=== PATIENT | male | born 1980 | race Caucasian/White ===

== ENCOUNTER 2022-05-24 19:56 | Emergency (ER) | payer OTHER, SELFPAY ==
[2022-05-24] VITALS (14 sets, daily range): BP systolic 106–151; BP diastolic 68–99; PULSE 89–115; RESP 18–22; TEMP 36.4; O2SAT 91–100; BMI 27.2
--- NOTE | 2022-05-24 20:09 | ED.ALLEREA ---
HPI - Allergic Reaction General Time Seen by Provider: 20:10 Date Seen: 05/24/22 Chief complaint: Allergic Reaction Stated complaint: Stung in Eyelid Time Seen by Provider: 05/24/22 19:57 Source: patient Mode of arrival: ambulatory Limitations: no limitations History of Present Illness HPI narrative: This 42-year-old gentleman who speaks fluent Czech and tingly she presents here after bee sting to his eyelid, this occurred approximately 30 minutes ago, he has a full body rash, and feels that he might have a little bit more shortness of breath with this too. He is speaking to me in full sentences, does not report any previous problems with bees, or hornets or any other stinging animals. Denies any nausea vomiting feeling lightheaded, denies any throat closing, or inability to speak. He is on no chronic medications, only allergy is to Celexa which caused him to have a headache and nausea which is more of an adverse type reaction. Denies any cardiac or pulmonary problems, is not taking any herbal medications. Presents here with this family. They have brought the insect along, and it is hornet. complaint: allergic reaction and hives Onset (ago): minute(s) (30) Exposure: insect bite Symptoms: rash and difficulty breathing Severity: moderate Treatment prior to arrival: none Previous Allergic Reaction History: none Related Data Previous Rx's Medication Instructions Recorded epinephrine 0.3 mg/0.3 mL 0.3 mg (0.3 mL) IM Q5-15M PRN 05/24/22 injection, auto-injector (EpiPen) anaphylaxis #2 ea Allergies Allergy/AdvReac Type Severity Reaction Status Date / Time bee venom protein (honey bee) Allergy Severe Hives Verified 05/24/22 21:36 citalopram Allergy Headache, Verified 05/24/22 20:28 Nausea Review of Systems Status of ROS Reports: 10 or more systems reviewed and unremarkable except as noted in History and below PFSH PFS Medical History No significant past medical history Surgical History No significant past surgical history Social History Smoking Status: Former smoker How often do you have a drink containing alcohol: never How often do you have six or more drinks on one occasion: Never AUDIT-C Alcohol total score: 0 Non-prescribed substance use: denies use Exam Narrative: Exam Narrative: Patient is seen and assessed he is speaking to me in full sentences but indeed does have a red macular rash, that is blanching over his pretty well is entire extremities, consistent with urticaria. also little bit on his face, there is no lip swelling, his speech is normal. His neck is supple, oropharynx is normal. Cranial nerves 3-12 are normal, JVP is flat, chest is good air entry bilaterally with no wheezing crackles noted, heart sounds no clicks murmurs or gallops, abdomen is soft, scaphoid, no tenderness to palpation no organomegaly, bowel sounds are normal, extremities are all normal, moves both proximal distal extremities normal, no neurologic findings, GCS is 15/15 Const: Vital Signs, click to edit/add: Vital Signs - 24 hr 05/24/22 20:04 05/24/22 20:10 05/24/22 20:23 Temperature 97.6 F Pulse Rate 97 Pulse Rate [Right Pulse Oximeter] 115 H 108 H Respiratory Rate 22 Blood Pressure 121/85 Blood Pressure [Ri ght Upper Arm] 106/68 124/73 Pulse Oximetry 94 91 95 Oxygen Delivery Me thod Room Air Room Air 05/24/22 20:24 05/24/22 20:31 05/24/22 20:10 Temperature 97.6 F Pulse Rate 93 98 Pulse Rate [Right Pulse Oximeter] 108 H Respiratory Rate 22 Blood Pressure 128/97 H Blood Pressure [Ri ght Upper Arm] 124/73 Pulse Oximetry 95 96 96 Oxygen Delivery Me thod Room Air 05/24/22 20:41 05/24/22 20:51 05/24/22 21:05 Temperature Pulse Rate 92 90 93 Pulse Rate [Right Pulse Oximeter] Respiratory Rate Blood Pressure 145/99 H 139/92 H Blood Pressure [Ri ght Upper Arm] Pulse Oximetry 100 98 97 Oxygen Delivery Me thod 05/24/22 21:11 05/24/22 21:22 05/24/22 21:31 Temperature Pulse Rate 95 94 98 Pulse Rate [Right Pulse Oximeter] Respiratory Rate Blood Pressure 138/86 138/83 133/92 H Blood Pressure [Ri ght Upper Arm] Pulse Oximetry 97 96 97 Oxygen Delivery Nc thod Documenting provider has reviewed patient's vital signs: yes Course Reevaluation(s) Reevaluation #1: Patient is re-evaluated he is sleeping comfortably, his edema over his eyelids is improved, and his rash is improving also. Explained to both him and his , that he will be watch for the next 3 hours or so, to ensure that he has no relapse, Time: 21:50 Time: 23:43 Reevaluation #3: Patient's rash totally gone away, he speaking to me with no problem at all, recheck shows good air entry bilaterally absence of any extra sounds such as wheezing. ,, edema of his eyes is much improved, there is no edema of his oropharynx. Vital Signs Vital signs: Initial Vital Signs Temperature 97.6 F 05/24/22 20:04 Temperature Source Temporal Artery Scan 05/24/22 20:04 Pulse Rate 115 H 05/24/22 20:04 Respiratory Rate 22 05/24/22 20:04 Blood Pressure 106/68 05/24/22 20:04 Blood Pressure Mean 80 05/24/22 20:04 Blood Pressure Position Sitting 05/24/22 20:04 Pulse Oximetry 94 05/24/22 20:04 Oxygen Delivery Method 05/24/22 20:04 Vital Signs Temperature 97.6 F 05/24/22 20:04 Pulse Rate 115 H 05/24/22 20:04 Respiratory Rate 22 05/24/22 20:04 Blood Pressure 106/68 05/24/22 20:04 Pulse Oximetry 94 05/24/22 20:04 Oxygen Delivery Method 05/24/22 20:04 Temperature 97.6 F 05/24/22 20:10 Pulse Rate 98 05/24/22 21:31 Respiratory Rate 22 05/24/22 20:10 Blood Pressure 133/92 H 05/24/22 21:31 Pulse Oximetry 97 05/24/22 21:31 Oxygen Delivery Method 05/24/22 20:10 MDM - Allergic Reaction MDM Narrative Medical decision making narrative: Differential diagnosis include but are not limited to contact dermatitis, allergic reaction, shingles, impetigo, seborrheic dermatitis, Pablo Adrian syndrome, ITP, meningococcus, HSP Life-threatening differential diagnosis includes occluded COPD exacerbation, pulmonary edema, acute coronary syndromes, pulmonary embolism, pneumonia, and pneumothorax. Other differential diagnosis considerations include asthma, bronchitis as well as other etiologies I think that this is likely allergic reaction, we will give him some epinephrine, Solu-Medrol, Benadryl, Pepcid, give him fluids, do an EKG, basic labs, and see how he does. He will need to be watch for a few hours, given the allergic reaction. Differential Diagnosis Differential diagnosis: Likely anaphylaxis, allergic reaction, angioedema, adverse reaction to drug, viral enanthem and urticaria Lab Data Labs: Lab Results 05/24/22 05/24/22 Range/Units 20:10 20:10 WBC 7.38 (4.50-11.00) K/uL RBC 5.36 (4.30-5.90) m/uL Hgb 17.1 (13.5-17.5) gm/dL Hct 47.6 (37.0-53.0) % MCV 89 (80-100) fL MCH 32 (26-34) pg MCHC 36 (32-36) gm/dL RDW Coeff of Monik 12.3 (11.5-15.5) % Plt Count 343 (140-440) K/uL Neut % (Auto) 54.1 (42.0-72.0) % Lymph % (Auto) 38.2 (20-44) % Throckmorton % (Auto) 6.0 (0.0-11.0) % Eos % (Auto) 1.4 (0.0-7.0) % Baso % (Auto) 0.0 (0.0-3.0) % Neut # (Auto) 4.00 (1.7-7.0) K/uL Lymph # (Auto) 2.82 (0.90-2.90) K/uL Throckmorton # (Auto) 0.40 (0.00-0.90) K/UL Eos # (Auto) 0.10 (0.00-0.50) K/uL Baso # (Auto) 0.00 (0.00-0.30) K/uL Abs Immat Gran (auto) 0.02 (0.00-0.30) K/uL Sodium 141 (135-149) mmol/L Potassium 4.0 (3.6-5.1) mmol/L Chloride 104 (96-114) mmol/L Carbon Dioxide 25 (20-32) mmol/L BUN 18 (5-24) mg/dL Creatinine 1.3 (0.5-1.5) mg/dL Estimated Creat Clear 79.64 Estimated GFR 71 ml/min Glucose 122 H (60-115) mg/dL Calcium 9.4 (8.4-10.6) mg/dL ECG Data Attestation: I personally reviewed and interpreted this ECG as follows: ECG interpretation date: 05/24/22 Prior ECG tracings: not available for review Interpretation: Normal sinus rhythm normal EKG with a ventricular rate of 95, there is no acute ST wave changes, normal QRS QT and IL interval Assessment: Normal EKG Discharge Plan Discharge Clinical Impression: Urticaria, Allergic reaction Patient Disposition: Home w/ Parent or Adult Condition: Improved Instructions: Urticaria (ED), General Allergic Reaction (ED) Additional Instructions: Home rest start medications in the morning. He may use Benadryl 50 mg every 6 hours this is OTC, along with the prednisone as directed out of Inst[facility] , I would also recommend filling the prescription for the EpiPen, as this reaction likely will only get worse the future if he gets done again. Return here if increasing shortness of breath, swelling around the oropharynx, wheezing, or any other issues. Activity Level: Light activity Prescriptions: New epinephrine [EpiPen] 0.3 mg/0.3 mL auto-injector 0.3 mg IM Q5-15M PRN (Reason: anaphylaxis) Qty: 2 0RF Rx Instructions: do not exceed 3 doses per episode Follow Up/Referrals: Brendan Sanderson MD [Primary Care Provider] - Stand Alone Forms: [employer] Info Instructions
[2022-05-24] MEDS: EPINEPHrine 0.3 MG PEN IM (20:14)
[2022-05-24] MEDS: 0.9 % SODIUM CHLORIDE 1000 ml 1,000 ML IV (20:14)
[2022-05-24] MEDS: diphenhydrAMINE 50 MG/ML inj IVP (20:16)
[2022-05-24] MEDS: METHYLPREDNISOLONE SOD SUCC 62.5 MG/ML (125) 125 MG IVP (20:16)
[2022-05-24] MEDS: FAMOTIDINE 20 MG TABLET PO (20:17)
[2022-05-24 20:26] LABS: Eosinophils Percent Auto 1.4 % (0.0-7.0); Hematocrit 47.6 % (37.0-53.0); Hemoglobin* 17.1 gm/dL (13.5-17.5); Immature Granulocytes Abs Auto 0.02 K/uL (0.00-0.30); Lymphocytes Absolute Auto 2.82 K/uL (0.90-2.90); Lymphocytes Percent Auto 38.2 % (20-44); Mean Corpuscular HGB Conc 36 gm/dL (32-36); Mean Corpuscular Hemoglobin 32 pg (26-34); Mean Corpuscular Volume 89 fL (80-100); Neutrophils Percent Auto 54.1 % (42.0-72.0); Platelet Count* 343 K/uL (140-440); RDW Coefficient of Variation % 12.3 % (11.5-15.5); Red Blood Count 5.36 m/uL (4.30-5.90); White Blood Count* 7.38 K/uL (4.50-11.00)
[2022-05-24 20:27] LABS: Slide Review Reflex No
[2022-05-24 20:39] LABS: Chloride* 104 mmol/L (96-114); Sodium* 141 mmol/L (135-149)
[2022-05-24 20:42] LABS: Carbon Dioxide* 25 mmol/L (20-32); Creatinine* 1.3 mg/dL (0.5-1.5); Est. Creatinine Clearance* 79.64; Estimated Glomerular Filt Rate 71 ml/min
[2022-05-24 20:43] LABS: Blood Urea Nitrogen* 18 mg/dL (5-24); Calcium* 9.4 mg/dL (8.4-10.6); Glucose* 122 mg/dL (60-115)
[2022-05-25 00:18] VITALS: BP 124/77; PULSE 89; RESP 18; TEMP 36.4
== END 2022-05-24 23:50 | disposition home or self-care (01) ==
PROVIDERS: Emergency Provider Family Medicine; PCP Family Medicine
DX: T63.441A Toxic effect of venom of bees, accidental (unintentional), initial encounter (principal); L50.9 Urticaria, unspecified
CPT/HCPCS: 36415; 80048; 85025; 93005; 96372; 96374; 96375; 99284; A9270; J0171; J1200; J2930; J7030

== ENCOUNTER 2023-05-30 09:27 | Emergency (ER) | payer OTHER, SELFPAY ==
[2023-05-30 09:31] VITALS: BP 128/78; PULSE 84; RESP 16; TEMP 36; O2SAT 98; BMI 25.8
--- NOTE | 2023-05-30 10:25 | ED_ITS ---
HPI - General Adult General Date Seen: 05/30/23 Chief complaint: Skin/Abscess/Foreign Body Stated complaint: Wasp sting L hand yesterday, swelling Time Seen by Provider: 05/30/23 09:32 Source: patient Mode of arrival: ambulatory Limitations: no limitations History of Present Illness HPI narrative: Patient is a 43-year-old male presenting to emergency department for a insect bite to his left hand. He states he believes it was a wasp. In the past he states he had anaphylactic reaction to hornet. Now is having swelling noted to his left hand and left forearm. Has some mild pain but has full range of motion. Denies numbness or weakness. Denies fevers, chills, chest pain, shortness of breath, abdominal pain, nausea vomiting, diarrhea, constipation, weakness, lightheadedness, dizziness. States that the taking Benadryl home without improvement in the swelling. States he has not used an EpiPen. Related Data Previous Rx's Medication Instructions Recorded epinephrine 0.3 mg/0.3 mL 0.3 mg (0.3 mL) IM Q5-15M PRN 05/24/22 injection, auto-injector (EpiPen) anaphylaxis #2 ea cephalexin 500 mg capsule 500 mg PO QID #20 caps 05/30/23 epinephrine 0.3 mg/0.3 mL 0.3 mg (0.3 mL) IM Q5-15M PRN #2 ea 05/30/23 injection, auto-injector (EpiPen 2-Gerardo) prednisone 20 mg tablet 40 mg (2 x 20 mg) PO DAILY #10 tabs 05/30/23 Allergies Allergy/AdvReac Type Severity Reaction Status Date / Time bee venom protein (honey bee) Allergy Severe Hives Verified 05/30/23 09:36 citalopram Allergy Headache, Verified 05/30/23 09:36 Nausea Review of Systems Status of ROS: Reports: 10 or more systems reviewed and unremarkable except as noted in History and below [facility] Medical History No significant past medical history Surgical History No significant past surgical history Social History Smoking Status: Former smoker How often do you have a drink containing alcohol: never How often do you have six or more drinks on one occasion: Never AUDIT-C Alcohol total score: 0 Non-prescribed substance use: denies use Exam Narrative: Exam Narrative: Const: Well-nourished, Well-developed, in mild distress Eyes: PERRL, no conjunctival injection, and symmetrical lids ENMT: Atraumatic external nose and ears. Moist mucous membranes. Neck: Symmetric, trachea midline, No thyromegaly. CVS: RRR, No murmurs or gallops. Peripheral pulses 2+ and equal in all extremities RESP: Unlabored respiratory effort. Clear to auscultation bilaterally. GI: Nontender/Nondistended, No rebound or guarding. MSK:Extremities w/o deformity, Normal Active ROM. Swelling noted to left hand. Skin: Warm, Dry. Erythematous left hand with some swelling and erythema noted to the left forearm Neuro: Normal Muscle tone, No focal neurological deficits. Normal sensation bilateral upper extremities with muscle strength 5/5 bilateral upper extremities. Psych: Awake, Alert, & Oriented x3. Appropriate mood and affect. Const: Vital Signs, click to edit/add: Vital Signs - 24 hr 05/30/23 09:31 Temperature 96.8 F L Pulse Rate [Right Pulse Oximeter] 84 Respiratory Rate 16 Blood Pressure [Ri ght Upper Arm] 128/78 Pulse Oximetry 98 Oxygen Delivery Me thod Room Air Course Vital Signs Vital signs: Initial Vital Signs Temperature 96.8 F L 05/30/23 09:31 Temperature Source Temporal Artery Scan 05/30/23 09:31 Pulse Rate 84 05/30/23 09:31 Respiratory Rate 16 05/30/23 09:31 Blood Pressure 128/78 05/30/23 09:31 Blood Pressure Mean 94 05/30/23 09:31 Blood Pressure Position Sitting 05/30/23 09:31 Pulse Oximetry 98 05/30/23 09:31 Oxygen Delivery Method Room Air 05/30/23 09:31 Vital Signs Temperature 96.8 F L 05/30/23 09:31 Pulse Rate 84 05/30/23 09:31 Respiratory Rate 16 05/30/23 09:31 Blood Pressure 128/78 05/30/23 09:31 Pulse Oximetry 98 05/30/23 09:31 Oxygen Delivery Method Room Air 05/30/23 09:31 Temperature 96.8 F L 05/30/23 09:31 Pulse Rate 84 05/30/23 09:31 Respiratory Rate 16 05/30/23 09:31 Blood Pressure 128/78 05/30/23 09:31 Pulse Oximetry 98 05/30/23 09:31 Oxygen Delivery Method Room Air 05/30/23 09:31 Medical Decision Making MDM Narrative Medical decision making narrative: Patient is a 41-year-old male presents emergency department for swelling to his left hand and forearm. States started yesterday after he was stung by a wasp. States he had anaphylaxis to hornets today. At this time is not showing no anaphylactic symptoms he states he was not having any symptoms other than the swelling. There is some mild pain. While it does look like it is mostly allergic reaction in nature due to the uniform swelling I cannot definitively rule out an infection. The swelling does go down the left arm in color his most to the underside of the forearm but is not have any streaking of hearing aids in appears more generalized edema rather than H2 infection. With this though I will start him on antibiotics precautionary along with prednisone and will give him an EpiPen. I informed him to continue take the medications as directed. Patient is given strict return precautions to return emergency department for any worsening symptoms for re-evaluation. At this time I do not believe he needs to see a hand specialist but this can potentially change if things worsen especially if he returns with worsening symptoms. Patient states he is agreeable to this plan and understands the importance of this strict return prec autions. Discharge Plan Discharge Clinical Impression: Allergic reaction Qualifiers: Encounter type: initial encounter Qualified Code(s): T78.40XA - Allergy, unspecified, initial encounter Patient Disposition: Home, Self-Care Condition: Stable Instructions: General Allergic Reaction (ED) Additional Instructions: Take the Benadryl 25-50 mg every 6-8 hours. Uses steroids daily for the next 4 days starting 05/31/2023. Take the Keflex as directed. Please return to the emergency department immediately if he notes any worsening or concerning symptoms. Have a low threshold to return for revaluation. While I believe this is most likely an allergic reaction if there is underlying infection that is getting worse it can worsen quickly and may need immediate attention. Prescriptions: New prednisone 20 mg tablet 40 mg PO DAILY Qty: 10 0RF epinephrine [EpiPen 2-Gerardo] 0.3 mg/0.3 mL auto-injector 0.3 mg IM Q5-15M PRNQty: 2 0RF Rx Instructions: do not exceed 3 doses per episode cephalexin 500 mg capsule 500 mg PO QID Qty: 20 0RF No Action epinephrine [EpiPen] 0.3 mg/0.3 mL auto-injector 0.3 mg IM Q5-15M PRN (Reason: anaphylaxis) Qty: 2 0RF Rx Instructions: do not exceed 3 doses per episode Follow Up/Referrals: Brendan Sanderson MD [Primary Care Provider] - Stand Alone Forms: [employer] Info Instructions
== END 2023-05-30 10:36 | disposition home or self-care (01) ==
PROVIDERS: Emergency Provider Student in an Organized Health Care Education/Training Program; PCP Family Medicine
DX: T63.461A Toxic effect of venom of wasps, accidental (unintentional), initial encounter (principal)
CPT/HCPCS: 99283

== ENCOUNTER 2023-11-20 07:53 | Emergency (ER) | payer BC, SELFPAY ==
[2023-11-20 07:56] VITALS: BP 138/84; PULSE 103; RESP 18; TEMP 36.1; O2SAT 97; BMI 26.1
--- NOTE | 2023-11-20 08:28 | ED.GENADULT ---
HPI - General Adult General Date Seen: 11/20/23 Chief complaint: Extremity Pain/Injury, Lower Stated complaint: Foot possible spider bite Time Seen by Provider: 11/20/23 08:03 Source: patient Mode of arrival: ambulatory Limitations: no limitations History of Present Illness HPI narrative: Is a 43-year-old male with left foot pain. He states the pain started about 2 days ago on top of his foot that has moved to the lateral aspect of the foot. He is concerned might feel a spider bite. He states he has had symptoms exactly like this before and at that time was told it was an allergic reaction to insect bites. He states both times he was given steroid and his symptoms quickly improved. He did use his EpiPen earlier today to see if it would help. Denies chest pain, shortness of breath, abdominal pain, diarrhea, constipation, weakness, fevers, chills. He states it is painful to walk on the foot great now. But the pain is all localized to the foot and denies any ankle pain. Has been taking Benadryl and Advil with minimal improvement in his symptoms Related Data Previous Rx's Medication Instructions Recorded epinephrine 0.3 mg/0.3 mL 0.3 mg (0.3 mL) IM Q5-15M PRN 05/24/22 injection, auto-injector (EpiPen) anaphylaxis #2 ea epinephrine 0.3 mg/0.3 mL 0.3 mg (0.3 mL) IM Q5-15M PRN #2 ea 05/30/23 injection, auto-injector (EpiPen 2-Gerardo) cephalexin 500 mg capsule 500 mg PO QID #20 caps 11/20/23 Allergies Allergy/AdvReac Type Severity Reaction Status Date / Time bee venom protein (honey bee) Allergy Severe Hives Verified 05/30/23 09:36 citalopram Allergy Headache, Verified 05/30/23 09:36 Nausea Review of Systems Status of ROS: Reports: 10 or more systems reviewed and unremarkable except as noted in History and below [facility] Medical History No significant past medical history Surgical History No significant past surgical history Social History Smoking Status: Former smoker How often do you have a drink containing alcohol: never How often do you have six or more drinks on one occasion: Never AUDIT-C Alcohol total score: 0 Non-prescribed substance use: denies use Exam Narrative: Exam Narrative: Const: Well-nourished, Well-developed, in mild distress Eyes: PERRL, no conjunctival injection, and symmetrical lids HENT: Atraumatic external nose and ears. Moist mucous membranes. Neck: Symmetric, trachea midline, No thyromegaly. CVS: RRR, No murmurs or gallops. Peripheral pulses 2+ and equal in all extremities RESP: Unlabored respiratory effort. Clear to auscultation bilaterally. GI: Nontender/Nondistended, No rebound or guarding. MSK:Extremities w/o deformity, Normal Active ROM, tenderness to palpation lateral foot. No tenderness to palpation noted to medial aspect of foot or ankle Skin: Warm, Dry. Her erythema to left foot on the lateral aspect Neuro: Normal Muscle tone, No focal neurological deficits. Psych: Awake, Alert, & Oriented x3. Appropriate mood and affect. Const: Vital Signs, click to edit/add: Vital Signs - 24 hr 11/20/23 07:56 Temperature 97 F L Pulse Rate [Pulse Oximeter] 103 H Respiratory Rate 18 Blood Pressure [Ri ght Upper Arm] 138/84 Pulse Oximetry 97 Oxygen Delivery Me thod Room Air Course Vital Signs Vital signs: Initial Vital Signs Temperature 97 F L 11/20/23 07:56 Temperature Source Temporal Artery Scan 11/20/23 07:56 Pulse Rate 103 H 11/20/23 07:56 Respiratory Rate 18 11/20/23 07:56 Blood Pressure 138/84 11/20/23 07:56 Blood Pressure Mean 102 11/20/23 07:56 Pulse Oximetry 97 11/20/23 07:56 Oxygen Delivery Method Room Air 11/20/23 07:56 Vital Signs Temperature 97 F L 11/20/23 07:56 Pulse Rate 103 H 11/20/23 07:56 Respiratory Rate 18 11/20/23 07:56 Blood Pressure 138/84 11/20/23 07:56 Pulse Oximetry 97 11/20/23 07:56 Oxygen Delivery Method Room Air 11/20/23 07:56 Temperature 97 F L 11/20/23 07:56 Pulse Rate 103 H 11/20/23 07:56 Respiratory Rate 18 11/20/23 07:56 Blood Pressure 138/84 11/20/23 07:56 Pulse Oximetry 97 11/20/23 07:56 Oxygen Delivery Method Room Air 11/20/23 07:56 Medical Decision Making MDM Narrative Medical decision making narrative: Patient is a 43-year-old male who presents to emergency department for what appears to be an allergic reaction. States as abdi Sal for last couple days. States he is at these exact same symptoms before and steroids resolved them. I did see the patient last time years here for swollen hand. At that time I gave him steroids and Keflex. Is this time the rash does appear more at allergic in nature than a cellulitis. I do not see any openings in the skin but the could be very small and difficult to see with the naked eye. I cannot definitively rule out cellulitis. I do not believe lab work or imaging is necessary as he is otherwise doing well. Patient will be discharged home with prednisone prescribed to [facility]. Also sent Keflex to his pharmacy informed him that if symptoms are not getting better by this evening or tomorrow morning to cone picker the Keflex to start taking antibiotic. He is given a shot of Toradol before discharge. Patient is agreeable to this plan Discharge Plan Discharge Clinical Impression: Allergic reaction Qualifiers: Encounter type: initial encounter Qualified Code(s): T78.40XA - Allergy, unspecified, initial encounter Patient Disposition: Home, Self-Care Condition: Stable Instructions: Allergy Testing (ED) Additional Instructions: Continued to take Benadryl and NSAIDs for symptoms. Take the steroids as directed. If the symptoms are not improving by this evening or tomorrow morning cone picker the antibiotic Keflex from the pharmacy and start taking that along with the other medication. Return to emergency department for new or worsening symptom Prescriptions: New cephalexin 500 mg capsule 500 mg PO QID Qty: 20 0RF No Action epinephrine [EpiPen] 0.3 mg/0.3 mL auto-injector 0.3 mg IM Q5-15M PRN (Reason: anaphylaxis) Qty: 2 0RF Rx Instructions: do not exceed 3 doses per episode epinephrine [EpiPen 2-Gerardo] 0.3 mg/0.3 mL auto-injector 0.3 mg IM Q5-15M PRNQty: 2 0RF Rx Instructions: do not exceed 3 doses per episode Follow Up/Referrals: Brendan Sanderson MD [Primary Care Provider] - Stand Alone Forms: [employer] Info Instructions
[2023-11-20] MEDS: KETOROLAC 30 MG/ML inj IM (08:33)
== END 2023-11-20 09:00 | disposition home or self-care (01) ==
LOC: ED 08:49
PROVIDERS: Emergency Provider Student in an Organized Health Care Education/Training Program
DX: T78.40XA Allergy, unspecified, initial encounter (principal)
CPT/HCPCS: 96372; 99282; 99283; J1885